=== PATIENT | female | born 1965 | race Caucasian/White ===

== ENCOUNTER → 2016-09-12 | Emergency (ER) | payer MEDICAID ==
[2014-07-06 10:09] VITALS: BMI 24.8
[~2016-09-12] MED LIST: COMBIVENT RESPIM4 GM INH; DEPAKOTE ER500 MG PO; DEPAKOTE500 MG PO; DOXYCYCLINE HY100 M2 PO; HYDROCODONE-APA1 TAB PO; INSPIRATION ELI1 PK1; LOPRESSOR25 MG PO; LUMIGAN 0.03 %2.5 ML EACH EYE; PAXIL PO; PEPCID40 MG PO; PHENERGAN25 M1 PO; PLAVIX75 MG PO; RESTASIS EYE DR30 EA EACH EYE; VALIUM10 MG PO
== END | disposition left against medical advice (07) ==
LOC: D.ER 19:03
DX: R51 Headache (principal)

== ENCOUNTER 2016-09-13 03:45 | Emergency (ER) | payer MEDICAID ==
[2014-07-06 10:09] VITALS: BMI 24.8
== END 2016-09-13 05:00 | disposition home or self-care (01) ==
LOC: D.ER 03:45
DX: R51 Headache (principal); J44.1 Chronic obstructive pulmonary disease with (acute) exacerbation

== ENCOUNTER 2016-12-12 09:46 | Emergency (ER) | payer MEDICAID ==
[2014-07-06 10:09] VITALS: BMI 24.8
[2016-12-12 10:16] LABS: BASOPHILS 0.1 % (0-2); EOSINOPHILS 1.3 % (0-7); HEMATOCRIT 48.2 % (36.0-48.0); HEMOGLOBIN 16.7 g/dL (12-16); IMMATURE GRANULOCYTES 0.3 % (0-5); LYMPHOCYTES 39.6 % (15-50); MCH 30.7 pg (26.0-34.0); MCHC 34.6 g/dL (31.0-37.0); MCV 88.6 fL (80.0-100.0); MEAN PLATELET VOLUME 10.5 fL (7.4-10.4); MONOCYTES 6.8 % (2-11); NEUTROPHILS 51.9 % (40-80); PLATELET COUNT 162 10x3/uL (130-400); RBC 5.44 10x6/uL (4.00-5.40); RDW 13.3 % (11.5-14.5); WBC 7.7 10x3/uL (4.8-10.8)
[2016-12-12 10:37] LABS: ALBUMIN 4.3 g/dL (3.4-5.0); ALKALINE PHOSPHATASE 166 U/L (46-116); ALT (SGPT) 13 U/L (10-68); AMYLASE - SERUM 112 U/L (25-115); CALC OSMOLALITY 276 mosm/kg (275-300); CALCIUM 9.1 mg/dL (8.5-10.1); CARBON DIOXIDE 22.4 mmol/L (21.0-32.0); CHLORIDE - SERUM 104 mmol/L (98-107); CREATININE - SERUM 0.7 mg/dL (0.6-1.3); GLUCOSE 94 mg/dL (74-106); LIPASE 128 U/L (73-393); POTASSIUM - SERUM 3.9 mmol/L (3.5-5.1); PROTEIN - SERUM 7.9 g/dL (6.4-8.2); SODIUM 139 mmol/L (136-145); UREA NITROGEN 10 mg/dL (7-18); eGFR NON AFRICAN AMERICAN > 90 mL/min (90-120)
[2016-12-12 12:32] LABS: APPEARANCE SLT CLOUDY (CLEAR); BILIRUBIN NEGATIVE (NEGATIVE); COLOR YELLOW (YELLOW); GLUCOSE NEGATIVE (NEGATIVE); KETONE NEGATIVE (NEGATIVE); LEUKOCYTE ESTERASE 1+ (NEGATIVE); NITRITE NEGATIVE (NEGATIVE); PROTEIN NEGATIVE (NEGATIVE); UROBILINOGEN NORMAL (NORMAL)
[2016-12-12 12:35] LABS: BACTERIA MANY /hpf (NONE SEEN); MUCUS <1+ /lpf (NONE SEEN); WHITE CELLS - URINE 0-5 /hpf (0-5)
== END 2016-12-12 13:30 | disposition home or self-care (01) ==
LOC: D.ER 09:46
PROVIDERS: Emergency Medicine
DX: R10.9 Unspecified abdominal pain (principal); N39.0 Urinary tract infection, site not specified; J44.9 Chronic obstructive pulmonary disease, unspecified; K27.9 Peptic ulcer, site unspecified, unspecified as acute or chronic, without hemorrhage or perforation; F17.200 Nicotine dependence, unspecified, uncomplicated

== ENCOUNTER 2017-04-18 13:30 | Outpatient (CLI) | payer MEDICAID ==
[2017-04-18 14:37] VITALS: BP 139/92; Ht 170.2 cm
== END 2017-04-18 14:44 ==
LOC: D.OPS 13:30
DX: G43.919 Migraine, unspecified, intractable, without status migrainosus (principal)

== ENCOUNTER 2017-05-26 03:35 | Emergency (ER) | payer MEDICAID ==
[2017-05-26 03:59] LABS: BASOPHILS 0.1 % (0-2); EOSINOPHILS 1.5 % (0-7); HEMOGLOBIN 13.9 g/dL (12-16); IMMATURE GRANULOCYTES 0.1 % (0-5); MCH 31.2 pg (26.0-34.0); MCHC 33.9 g/dL (31.0-37.0); MCV 91.9 fL (80.0-100.0); MEAN PLATELET VOLUME 9.9 fL (7.4-10.4); MONOCYTES 6.5 % (2-11); NEUTROPHILS 40.8 % (40-80); PLATELET COUNT 173 10x3/uL (130-400); RBC 4.46 10x6/uL (4.00-5.40); RDW 12.8 % (11.5-14.5); WBC 7.2 10x3/uL (4.8-10.8)
[2017-05-26 04:14] LABS: ALBUMIN 3.9 g/dL (3.4-5.0); ALKALINE PHOSPHATASE 110 U/L (46-116); ALT (SGPT) 15 U/L (10-68); CALC OSMOLALITY 272 mosm/kg (275-300); CALCIUM 8.1 mg/dL (8.5-10.1); CARBON DIOXIDE 27.8 mmol/L (21.0-32.0); CHLORIDE - SERUM 103 mmol/L (98-107); GLUCOSE 96 mg/dL (74-106); POTASSIUM - SERUM 3.9 mmol/L (3.5-5.1); SODIUM 137 mmol/L (136-145); UREA NITROGEN 10 mg/dL (7-18); eGFR NON AFRICAN AMERICAN 62 mL/min (90-120)
[2017-05-26 04:23] LABS: CHOL - HDL RATIO 6.7 ratio (2.3-4.1); CHOLESTEROL, TOTAL 288 mg/dL (0-200); CKMB 0.1 U/L (0.0-3.6); CREATINE KINASE 23 UL (21-215); HDL CHOLESTEROL 43 mg/dL (32-96); LDL CHOLESTEROL 176 mg/dL (0-100); LDL-HDL RATIO 4.1 ratio (1.5-3.5); TRIGLYCERIDE 348 mg/dL (30-200); TROPONIN-I < 0.017 ng/mL (0.000-0.060)
== END 2017-05-26 05:34 | disposition home or self-care (01) ==
LOC: D.ER 03:35
PROVIDERS: Emergency Medicine
DX: R07.9 Chest pain, unspecified (principal); J44.9 Chronic obstructive pulmonary disease, unspecified

== ENCOUNTER 2018-01-13 06:25 | Emergency (ER) | payer MEDICAID ==
[~2018-01-13] VITALS: Ht 170.2 cm; Wt 72.7 kg
[2018-01-13 06:28] VITALS: Ht 170.2 cm; Wt 72.7 kg
[2018-01-13 06:48] LABS: APPEARANCE CLEAR (CLEAR); BILIRUBIN NEGATIVE (NEGATIVE); COLOR STRAW (YELLOW); GLUCOSE NEGATIVE (NEGATIVE); KETONE NEGATIVE (NEGATIVE); NITRITE NEGATIVE (NEGATIVE); PROTEIN NEGATIVE (NEGATIVE); SPECIFIC GRAVITY 1.005 (1.005-1.020); UROBILINOGEN NORMAL (NORMAL)
[2018-01-13 07:07] LABS: HEMATOCRIT 40.3 % (36.0-48.0); HEMOGLOBIN 13.8 g/dL (12-16); MCH 31.6 pg (26.0-34.0); MCHC 34.2 g/dL (31.0-37.0); MCV 92.2 fL (80.0-100.0); MEAN PLATELET VOLUME 9.7 fL (7.4-10.4); PLATELET COUNT 190 10x3/uL (130-400); RBC 4.37 10x6/uL (4.00-5.40); RDW 13.1 % (11.5-14.5)
[2018-01-13 07:28] LABS: ALBUMIN 3.7 g/dL (3.4-5.0); BILIRUBIN - TOTAL 0.16 mg/dL (0.2-1.3); CARBON DIOXIDE 23.2 mmol/L (21.0-32.0); CREATININE - SERUM 0.9 mg/dL (0.6-1.3); POTASSIUM - SERUM 4.2 mmol/L (3.5-5.1); PROTEIN - SERUM 7.2 g/dL (6.4-8.2)
[2018-01-13 08:03] LABS: EOSINOPHILS 2 % (0-7); LYMPHOCYTES 54 % (15-50); MONOCYTES 12 % (2-11); NEUTROPHILS 31 % (40-80); PLATELET ESTIMATE NORMAL; ROULEAUX OCC
[2018-01-13 09:37] VITALS: BP 173/97
== END 2018-01-13 09:37 | disposition home or self-care (01) ==
LOC: D.ER 06:25
PROVIDERS: Family Medicine
DX: R10.9 Unspecified abdominal pain (principal); Z86.73 Personal history of transient ischemic attack (TIA), and cerebral infarction without residual deficits; G40.909 Epilepsy, unspecified, not intractable, without status epilepticus; J45.909 Unspecified asthma, uncomplicated; G54.0 Brachial plexus disorders; Z86.59 Personal history of other mental and behavioral disorders; Z85.42 Personal history of malignant neoplasm of other parts of uterus; F17.200 Nicotine dependence, unspecified, uncomplicated

== ENCOUNTER → 2018-05-19 14:55 | Outpatient (CLI) | payer MEDICAID ==
[2018-01-13 06:28] VITALS: BMI 25.1
== END | disposition home or self-care (01) ==
LOC: D.MRI 05-12 13:30
DX: M54.12 Radiculopathy, cervical region (principal); S43.491A Other sprain of right shoulder joint, initial encounter; X58.XXXA Exposure to other specified factors, initial encounter

== ENCOUNTER 2018-07-25 00:13 | Emergency (ER) | payer MEDICAID ==
[~2018-07-25] VITALS: Ht 170.2 cm; Wt 72.7 kg
[2018-07-25 00:18] VITALS: Ht 170.2 cm; Wt 72.7 kg
[2018-07-25] MEDS ORDERED: NORVASC5 MG PO (00:51)
[2018-07-25 01:40] VITALS: BP 155/88
== END 2018-07-25 01:40 | disposition home or self-care (01) ==
LOC: D.ER 00:13
DX: G43.909 Migraine, unspecified, not intractable, without status migrainosus (principal); I11.0 Hypertensive heart disease with heart failure; I50.9 Heart failure, unspecified

== ENCOUNTER 2019-01-15 23:36 | Emergency (ER) | payer MEDICAID ==
[~2019-01-15] VITALS: Ht 170.2 cm; Wt 74.8 kg
[~2019-01-15 23:36] MED LIST changes: +NORVASC5 MG PO
[2019-01-15 23:43] VITALS: Ht 170.2 cm; Wt 74.8 kg
[2019-01-15] MEDS ORDERED: TOPROL XL25 MG PO (23:46)
[2019-01-16] MEDS ORDERED: DOXYCYCLINE HY100 M2 PO (00:03)
[2019-01-16 00:09] LABS: APPEARANCE CLEAR (CLEAR); BILIRUBIN NEGATIVE (NEGATIVE); COLOR STRAW (YELLOW); GLUCOSE NEGATIVE (NEGATIVE); KETONE NEGATIVE (NEGATIVE); NITRITE NEGATIVE (NEGATIVE); PROTEIN NEGATIVE (NEGATIVE); SPECIFIC GRAVITY 1.005 (1.005-1.020); UROBILINOGEN NORMAL (NORMAL)
[2019-01-16 00:13] LABS: BASOPHILS 0.5 % (0-2); HEMATOCRIT 43.2 % (36.0-48.0); HEMOGLOBIN 14.6 g/dL (12-16); IMMATURE GRANULOCYTES 0.2 % (0-5); LYMPHOCYTES 43.1 % (15-50); MCH 31.7 pg (26.0-34.0); MCHC 33.8 g/dL (31.0-37.0); MCV 93.9 fL (80.0-100.0); MEAN PLATELET VOLUME 9.8 fL (7.4-10.4); MONOCYTES 6.8 % (2-11); NEUTROPHILS 47.4 % (40-80); PLATELET COUNT 231 10x3/uL (130-400); RDW 13.4 % (11.5-14.5); WBC 5.9 10x3/uL (4.8-10.8)
[2019-01-16 00:24] LABS: UDS - AMPHET NEGATIVE QUAL (NEGATIVE); UDS - BARB NEGATIVE QUAL (NEGATIVE); UDS - BENZO POSITIVE QUAL (NEGATIVE); UDS - COCAINE NEGATIVE QUAL (NEGATIVE); UDS - OPIATE POSITIVE QUAL (NEGATIVE); UDS - PCP NEGATIVE QUAL (NEGATIVE); UDS - THC NEGATIVE QUAL (NEGATIVE)
[2019-01-16 00:31] LABS: ALBUMIN 3.8 g/dL (3.4-5.0); ALKALINE PHOSPHATASE 115 U/L (46-116); ALT (SGPT) 30 U/L (10-68); BILIRUBIN - TOTAL 0.22 mg/dL (0.2-1.3); CALC OSMOLALITY 276 mosm/kg (275-300); CALCIUM 8.3 mg/dL (8.5-10.1); CARBON DIOXIDE 26.4 mmol/L (21.0-32.0); CHLORIDE - SERUM 102 mmol/L (98-107); CREATININE - SERUM 0.8 mg/dL (0.6-1.3); GLUCOSE 117 mg/dL (74-106); POTASSIUM - SERUM 4.1 mmol/L (3.5-5.1); PRO BNP 83 pg/mL (0-125); PROTEIN - SERUM 7.7 g/dL (6.4-8.2); SODIUM 139 mmol/L (136-145); UREA NITROGEN 6 mg/dL (7-18); eGFR NON AFRICAN AMERICAN 79 mL/min (90-120)
[2019-01-16] MEDS ORDERED: PREDNISONE50 MG PO (00:33)
[2019-01-16 00:34] LABS: TROPONIN-I < 0.017 ng/mL (0.000-0.060)
[2019-01-16 00:42] VITALS: BP 155/83
== END 2019-01-16 00:43 | disposition home or self-care (01) ==
LOC: D.ER 23:36
PROVIDERS: Family Medicine
DX: J40 Bronchitis, not specified as acute or chronic (principal); I11.0 Hypertensive heart disease with heart failure; I50.9 Heart failure, unspecified

== ENCOUNTER 2019-05-01 08:37 | Inpatient (IN) | payer MEDICAID ==
[~2019-05-01] VITALS: Ht 170.2 cm; Wt 81.8 kg
[~2019-05-01 08:37] MED LIST changes: +HYDROCODON-ACE1 EA10 PO; -HYDROCODONE-APA1 TAB PO; +PREDNISONE50 MG PO; +TOPROL XL25 MG PO
[2019-05-01 09:32] LABS: BASOPHILS 0.1 % (0-2); EOSINOPHILS 0.7 % (0-7); HEMATOCRIT 42.5 % (36.0-48.0); HEMOGLOBIN 14.3 g/dL (12-16); IMMATURE GRANULOCYTES 0.1 % (0-5); LYMPHOCYTES 20.3 % (15-50); MCH 30.8 pg (26.0-34.0); MCHC 33.6 g/dL (31.0-37.0); MCV 91.6 fL (80.0-100.0); MEAN PLATELET VOLUME 9.6 fL (7.4-10.4); MONOCYTES 5.7 % (2-11); NEUTROPHILS 73.1 % (40-80); PLATELET COUNT 213 10x3/uL (130-400); RBC 4.64 10x6/uL (4.00-5.40); RDW 13.1 % (11.5-14.5); WBC 8.2 10x3/uL (4.8-10.8)
[2019-05-01 09:53] LABS: CALC OSMOLALITY 276 mosm/kg (275-300); CALCIUM 8.5 mg/dL (8.5-10.1); CARBON DIOXIDE 26.1 mmol/L (21.0-32.0); CHLORIDE - SERUM 103 mmol/L (98-107); CREATININE - SERUM 0.8 mg/dL (0.6-1.3); GLUCOSE 115 mg/dL (74-106); POTASSIUM - SERUM 4.1 mmol/L (3.5-5.1); SODIUM 139 mmol/L (136-145); UREA NITROGEN 7 mg/dL (7-18); eGFR NON AFRICAN AMERICAN 79 mL/min (90-120)
[2019-05-01 09:57] LABS: ALBUMIN 3.7 g/dL (3.4-5.0); ALKALINE PHOSPHATASE 109 U/L (46-116); ALT (SGPT) 38 U/L (10-68); BILIRUBIN - TOTAL 0.38 mg/dL (0.2-1.3); PROTEIN - SERUM 7.6 g/dL (6.4-8.2)
--- NOTE | 2019-05-01 10:24 | NUR ---
PT REQUESTING PAIN MEDICATION; EDP PARTH NOTIFIED.
--- NOTE | 2019-05-01 10:50 | NUR ---
RECEIVED PT TO ROOM 2136 VIA W/C FROM ER DX CELLULITIS TO FACE AAOX4 RESP UNLABORED SKIN W/D COLOR WNL EDEMA AND REDNESS NOTED TO FACE NAD NOTED WILL CONTINUE TO MONITOR
[2019-05-01] MEDS ORDERED: PHENERGAN25 M1 PO (11:54)
[2019-05-01 16:00] VITALS: BP 157/78
[2019-05-01 16:16] VITALS: BP 192/88; Ht 170.2 cm; Wt 81.8 kg
--- NOTE | 2019-05-01 19:10 | NUR ---
BEDSIDE REPORT RECEIVED FROM DAY SHIFT, PT CARE ASSUMED. INTRODUCED SELF AND WROTE NAME ON BOARD. PT SITTING UP IN BED, WATCHING TV, AAOX4. DENIES ANY NEEDS AT THIS TIME. BED IN LOWEST POSITION, SR X1, CALL LIGHT WITHIN REACH. WILL CONTINUE TO MONITOR.
[2019-05-01 20:00] VITALS: BP 180/85
[2019-05-02] VITALS: BP 139/81
[2019-05-02 04:00] VITALS: BP 127/68
[2019-05-02 05:42] LABS: BASOPHILS 0.2 % (0-2); HEMATOCRIT 38.4 % (36.0-48.0); HEMOGLOBIN 12.7 g/dL (12-16); IMMATURE GRANULOCYTES 0.4 % (0-5); LYMPHOCYTES 48.3 % (15-50); MCH 30.5 pg (26.0-34.0); MCHC 33.1 g/dL (31.0-37.0); MCV 92.3 fL (80.0-100.0); MEAN PLATELET VOLUME 9.7 fL (7.4-10.4); MONOCYTES 10.4 % (2-11); NEUTROPHILS 38.7 % (40-80); PLATELET COUNT 180 10x3/uL (130-400); RBC 4.16 10x6/uL (4.00-5.40); RDW 13.2 % (11.5-14.5)
[2019-05-02 05:50] LABS: WBC 5.5 10x3/uL (4.8-10.8)
[2019-05-02 06:23] LABS: ALBUMIN 3.3 g/dL (3.4-5.0); ALKALINE PHOSPHATASE 89 U/L (30-120); ALT (SGPT) 35 U/L (10-68); BILIRUBIN - TOTAL 0.23 mg/dL (0.2-1.3); CALC OSMOLALITY 277 mosm/kg (275-300); CALCIUM 8.3 mg/dL (8.5-10.1); CARBON DIOXIDE 25.9 mmol/L (21.0-32.0); CHLORIDE - SERUM 104 mmol/L (98-107); CREATININE - SERUM 0.7 mg/dL (0.6-1.3); GLUCOSE 109 mg/dL (74-106); MAGNESIUM - SERUM 2.1 mg/dL (1.8-2.4); POTASSIUM - SERUM 3.7 mmol/L (3.5-5.1); PROTEIN - SERUM 6.8 g/dL (6.4-8.2); SODIUM 139 mmol/L (136-145); eGFR NON AFRICAN AMERICAN > 90 mL/min (90-120)
[2019-05-02 06:31] LABS: UREA NITROGEN 10 mg/dL (7-18)
[2019-05-02 08:00] VITALS: BP 102/35
--- NOTE | 2019-05-02 08:18 | NUR ---
PT RESTING, EYES CLOSED. RR EVEN AND UNLABORED. PT STATES SHE IS IN PAIN AND REQUESTS DILAUDID. WHEN ASKED IF SHE WANTED SCHEDULED NORCO @ 0845 SHE DENIED. WAS TOLD COULD NOT RECIEVE DILAUDID UNTIL 829, PT VERBALZIED UNDERSTANDING. NO FURTHER NEEDS AT THIS TIME. BED IN LOWEST POSITION. CALL LIGHT WITHIN REACH. WILL CONTINUE TO MONITOR.
[2019-05-02 09:06] VITALS: BP 115/62
[2019-05-02 16:00] VITALS: BP 128/54
--- NOTE | 2019-05-02 19:23 | NUR ---
RECEIVED LAYING IN BED WITH EYES CLOSED. EASILY AROUSES WITH VERBAL STIMULI. ORIENTED X4. IV TO RIGHT HAND SL.. DSG CDI. UP AD HANH TO B/R. DENIES ANY NEEDS AT THIS TIME.
[2019-05-02 20:00] VITALS: BP 119/56
[2019-05-03] VITALS: BP 117/79
[2019-05-03 04:00] VITALS: BP 133/18
[2019-05-03 06:38] LABS: BASOPHILS 0.2 % (0-2); EOSINOPHILS 1.8 % (0-7); HEMATOCRIT 39.5 % (36.0-48.0); HEMOGLOBIN 13.1 g/dL (12-16); IMMATURE GRANULOCYTES 0.2 % (0-5); LYMPHOCYTES 42.9 % (15-50); MCH 30.9 pg (26.0-34.0); MCHC 33.2 g/dL (31.0-37.0); MCV 93.2 fL (80.0-100.0); MEAN PLATELET VOLUME 9.8 fL (7.4-10.4); MONOCYTES 6.8 % (2-11); NEUTROPHILS 48.1 % (40-80); PLATELET COUNT 206 10x3/uL (130-400); RBC 4.24 10x6/uL (4.00-5.40); RDW 13.3 % (11.5-14.5)
[2019-05-03 06:48] LABS: ANION GAP 11.9 mmol/L (8-16); CALCIUM 8.2 mg/dL (8.5-10.1); CARBON DIOXIDE 28.4 mmol/L (21.0-32.0); MAGNESIUM - SERUM 2.1 mg/dL (1.8-2.4)
[2019-05-03 06:49] LABS: CREATININE - SERUM 0.9 mg/dL (0.6-1.3); POTASSIUM - SERUM 4.3 mmol/L (3.5-5.1)
--- NOTE | 2019-05-03 07:30 | NUR ---
A/A/OX4. DENIES ANY NEEDS AT PRESENT TIME AND NO REQUESTS VOICED. ASSESSMENT COMPLETED AND WILL CONTINUE POC. BED IN LOW POSITION AND CALL LIGHT IN REACH. PT GETS UP AD HANH AMBULATORY AND IS STABLE. SL PATENT TO RIGHT HAND. SOME SLIGHT REDNESS STILL VISIBLE TO RIGHT SIDE OF FACE, BUT LOOKING BETTER.
[2019-05-03 08:00] VITALS: BP 120/60
[2019-05-03 12:00] VITALS: BP 90/45
[2019-05-03] MEDS ORDERED: CLEOCIN HCL300 MG PO ×2 (12:44→13:02)
[2019-05-03] MEDS ORDERED: OMNICEF300 MG PO (12:45)
--- NOTE | 2019-05-03 13:42 | MORECARE ---
CASE MANAGEMENT DISCHARGE SUMMARY PATIENT: BECKY RALPH UNIT: [id number] ADM DATE: 05/01/19 AGE: 54 : 65 SEX: F ROOM/BED: D.2137 AUTHOR: MAX BROWN PHYSICIAN: REFERRING PHYSICIAN: KANDY GAR MD DATE OF SERVICE: 05/03/19 Discharge Plan Patient Name: BECKY RALPH Facility: [facility]:[place] : 1965 Planned Disposition: Home Anticipated Discharge Date: 05/03/19 Discharge Date: Expected LOS: 2 Initial Reviewer: [email or web address] Initial Review Date: 05/01/2019 Generated: 05/03/19 2:41 pm Patient Name: BECKY RALPH Page [id number] at 1342 All edits/amendments must be made on the electronic document DICTATION DATE: 05/03/19 1341 MEDICAL MALPRACTICE PARALEGAL: TREY 05/03/19 1341 RPT#: [id number] DC DATE: STATUS: ADM IN [facility] [address] [place] [address] END OF REPORT
--- NOTE | 2019-05-03 13:57 | MORECARE ---
CASE MANAGEMENT DISCHARGE SUMMARY PATIENT: BECKY RALPH UNIT: [id number] ADM DATE: 05/01/19 AGE: 54 : 65 SEX: F ROOM/BED: D.2137 AUTHOR: MAX BROWN PHYSICIAN: REFERRING PHYSICIAN: KANDY GAR MD DATE OF SERVICE: 05/03/19 Discharge Plan Patient Name: BECKY RALPH Facility: [facility]:[place] : 1965 Planned Disposition: Home Anticipated Discharge Date: 05/03/19 Discharge Date: Expected LOS: 2 Initial Reviewer: [email or web address] Initial Review Date: 05/01/2019 Generated: 05/03/19 2:56 pm Last DP export: 05/03/19 12:42 p Patient Name: BECKY RALPH Page [id number] at 1357 All edits/amendments must be made on the electronic document DICTATION DATE: 05/03/19 1356 DIRECTOR SALES TRAINING: TREY 05/03/19 1356 RPT#: [id number] DC DATE: STATUS: ADM IN [facility] [address] [place] [address] END OF REPORT
--- NOTE | 2019-05-03 14:05 | MORECARE ---
CASE MANAGEMENT DISCHARGE SUMMARY PATIENT: BECKY RALPH UNIT: [id number] ADM DATE: 05/01/19 AGE: 54 : 65 SEX: F ROOM/BED: D.3147 AUTHOR: MAX BROWN PHYSICIAN: REFERRING PHYSICIAN: KADNY GAR MD DATE OF SERVICE: 05/03/19 Discharge Plan Patient Name: BECKY RALPH Facility: [facility]:[place] : 1965 Planned Disposition: Home Anticipated Discharge Date: 05/03/19 Discharge Date: Expected LOS: 2 Initial Reviewer: [email or web address] Initial Review Date: 05/01/2019 Generated: 05/03/19 3:05 pm Comments DCP- Discharge Planning Updated by [email or web address]: Kristina Stein on 05/03/19 12:[address] CM MET WITH THE PATIENT AT THE BEDSIDE. FIDENCIO ADVISED SHE HAD DISCHARGE ORDERS. THE PATIENT STATES SHE WAS TOLD SHE WOULD BE DISCHARGED ON SATURDAY. FIDENCIO ADVISED SHE HAD A DISCHARGE ORDER BUT I WOULD LET HER PRIMARY NURSE KNOW THAT SHE HAD QUESTIONS AND WANTED TO SEE THE DOCTOR. SHE WILL HAVE TRANSPORTATION TO HOME. SHE CAN OBTAIN HER PRESCRIPTION AND STATES SHE HAS CLINDAMYCIN AT HOME. DENIES SHE HAS ANY NEEDS. HAD NO QUESTIONS. VOICED NO CONCERNS. FIDENCIO SPOKE WITH KHOI, HER PRIMARY NURSE, REGARDING PATIENT'S REQUEST TO SPEAK WITH THE MD. Last DP export: 05/03/19 12:57 p Patient Name: BECKY RALPH Page [id number] at 1405 All edits/amendments must be made on the electronic document DICTATION DATE: 05/03/19 1404 MANAGER MULTICULTURAL: TREY 05/03/19 1404 RPT#: [id number] DC DATE: STATUS: ADM IN [facility] [address] [place] [address] END OF REPORT
--- NOTE | 2019-05-03 16:02 | NUR ---
DISCHARGE INSTRUCTIONS REVIEWED WITH PT AND VERBALIZES UNDERSTANDING WITH NO QUESTIONS. SL REMOVED FROM RIGHT HAND WITHOUT DIFFICTULTY AND CATH TIP INTACT. LEFT FLOOR AMBULATORY AT HER REQUEST WITH ALL PERSONAL BELONGINGS. LEFT FACILITY VIA PRIVATE VEHICLE WITH FRIEND
--- NOTE | 2019-05-04 09:11 | MORECARE ---
CASE MANAGEMENT DISCHARGE SUMMARY PATIENT: BECKY RALPH UNIT: [id number] ADM DATE: 05/01/19 AGE: 54 : 65 SEX: F ROOM/BED: D.6134 AUTHOR: MAX BROWN PHYSICIAN: REFERRING PHYSICIAN: KANDY GAR MD DATE OF SERVICE: 05/04/19 Discharge Plan Patient Name: BECKY RALPH Facility: [facility]:[place] : 1965 Planned Disposition: Home Anticipated Discharge Date: 05/03/19 Discharge Date: 05/03/2019 Expected LOS: 2 Initial Reviewer: [email or web address] Initial Review Date: 05/01/2019 Generated: 05/04/19 10:10 am Comments DCP- Discharge Planning Updated by [email or web address]: Kristina Stein on 05/03/19 12:[address] CM MET WITH THE PATIENT AT THE BEDSIDE. FIDENCIO ADVISED SHE HAD DISCHARGE ORDERS. THE PATIENT STATES SHE WAS TOLD SHE WOULD BE DISCHARGED ON SATURDAY. FIDENCIO ADVISED SHE HAD A DISCHARGE ORDER BUT I WOULD LET HER PRIMARY NURSE KNOW THAT SHE HAD QUESTIONS AND WANTED TO SEE THE DOCTOR. SHE WILL HAVE TRANSPORTATION TO HOME. SHE CAN OBTAIN HER PRESCRIPTION AND STATES SHE HAS CLINDAMYCIN AT HOME. DENIES SHE HAS ANY NEEDS. HAD NO QUESTIONS. VOICED NO CONCERNS. FIDENCIO SPOKE WITH KHOI, HER PRIMARY NURSE, REGARDING PATIENT'S REQUEST TO SPEAK WITH THE MD. Last DP export: 05/03/19 1:05 p Patient Name: BECKY RALPH Page [phone] at 0911 All edits/amendments must be made on the electronic document DICTATION DATE: 05/04/19909 ERP MANAGER: TREY 05/04/1910 RPT#: [id number] DC DATE:05/03/19 STATUS: DIS IN [facility] [address] [place] [address] END OF REPORT
== END 2019-05-03 16:02 | disposition home or self-care (01) | DRG 603 ==
LOC: D.ER 08:37 → D.M2 09:46
PROVIDERS: Family Medicine; ADMIT Family Medicine; ATTEND Family Medicine
DX: L03.211 Cellulitis of face (principal); K02.9 Dental caries, unspecified; I11.0 Hypertensive heart disease with heart failure; I50.9 Heart failure, unspecified; J44.9 Chronic obstructive pulmonary disease, unspecified

== ENCOUNTER 2019-12-13 12:42 | Inpatient (IN) | payer MEDICAID ==
[~2019-12-13] VITALS: Ht 170.2 cm; Wt 68.2 kg
[~2019-12-13 12:42] MED LIST changes: +CLEOCIN HCL300 MG PO; +OMNICEF300 MG PO
[2019-12-13] MEDS ORDERED: OMNICEF300 MG PO (13:25)
[2019-12-13 14:05] LABS: BASOPHILS 0.2 % (0-2); EOSINOPHILS 1.7 % (0-7); HEMATOCRIT 45.3 % (36.0-48.0); HEMOGLOBIN 15.3 g/dL (12-16); IMMATURE GRANULOCYTES 0.2 % (0-5); LYMPHOCYTES 25.2 % (15-50); MCHC 33.8 g/dL (31.0-37.0); MCV 91.9 fL (80.0-100.0); MEAN PLATELET VOLUME 10.4 fL (7.4-10.4); MONOCYTES 6.1 % (2-11); NEUTROPHILS 66.6 % (40-80); PLATELET COUNT 211 10x3/uL (130-400); RBC 4.93 10x6/uL (4.00-5.40); RDW 12.9 % (11.5-14.5); WBC 8.6 10x3/uL (4.8-10.8)
[2019-12-13 14:14] LABS: CALC OSMOLALITY 278 mosm/kg (275-300); CALCIUM 9.2 mg/dL (8.5-10.1); CARBON DIOXIDE 22.1 mmol/L (21.0-32.0); CHLORIDE - SERUM 106 mmol/L (98-107); CREATININE - SERUM 0.8 mg/dL (0.6-1.3); GLUCOSE 123 mg/dL (74-106); POTASSIUM - SERUM 3.8 mmol/L (3.5-5.1); SODIUM 140 mmol/L (136-145); UREA NITROGEN 9 mg/dL (7-18); eGFR NON AFRICAN AMERICAN 79 mL/min (90-120)
[2019-12-13 14:20] LABS: ALKALINE PHOSPHATASE 118 U/L (30-120); ALT (SGPT) 22 U/L (10-68); BILIRUBIN - TOTAL 0.31 mg/dL (0.2-1.3); PROTEIN - SERUM 7.6 g/dL (6.4-8.2)
[2019-12-13 16:04] LABS: CREATINE KINASE 27 UL (21-215); MAGNESIUM - SERUM 2.2 mg/dL (1.8-2.4)
[2019-12-13 16:07] LABS: TROPONIN-I < 0.017 ng/mL (0.000-0.060)
[2019-12-13 16:15] VITALS: BP 150/89
[2019-12-13 16:35] LABS: APTT 31.9 SECONDS (22.8-39.4); INR 0.99 (0.85-1.17); PROTIME 13.1 SECONDS (11.6-15.0)
--- NOTE | 2019-12-13 17:24 | NUR ---
MERREM COMPLETE AT 1655. HAD TO SLOW RATE DUE TO C/O PAIN WITH INFUSION.
[2019-12-13 17:27] VITALS: BP 150/89; Ht 170.2 cm; Wt 68.2 kg
--- NOTE | 2019-12-13 20:00 | NUR ---
INITIAL ROUNDS AND ASSESSMENT COMPLETED. PT THEN OUT TO WALK THE HALLWAY AND STRETCH HER LEGS. CPOC.
--- NOTE | 2019-12-13 21:04 | NUR ---
PT RETURNED TO ROOM. BEDTIME MEDS GIVEN. DISCUSSED PLAN OF CARE, NEXT ABT DUE. PT SWABBED NASALLY FOR COVID AND SPECIMEN DELIVERED TO LAB
[2019-12-13 21:30] VITALS: BP 144/74
--- NOTE | 2019-12-13 22:59 | NUR ---
RESTING IN BED. NO DISTRESS. CPOC.
[2019-12-14 04:30] VITALS: BP 147/96
--- NOTE | 2019-12-14 05:46 | NUR ---
IV SITED TO LEFT A/C/UPPER ARM IS BECOMING TENDER AND UNCOMFORTABLE TO PATIENT. PT IS A VERY HARD STICK. ATTEMPTS X 5 BY SEVERAL NURSES. WILL PUT IN FOR VASCULAR CONSULT NURSE TO SEE PATIENT TODAY. PT STATES SHE CAN KEEP THE CURRENT IV UNTIL THE CURRENT ABT IS COMPLETE, BUT NEEDS A NEW ONE HUEY.
[2019-12-14 06:28] LABS: ALBUMIN 3.4 g/dL (3.4-5.0); ALKALINE PHOSPHATASE 101 U/L (30-120); ALT (SGPT) 22 U/L (10-68); BILIRUBIN - TOTAL 0.16 mg/dL (0.2-1.3); CALC OSMOLALITY 277 mosm/kg (275-300); CALCIUM 7.9 mg/dL (8.5-10.1); CARBON DIOXIDE 24.7 mmol/L (21.0-32.0); CHLORIDE - SERUM 107 mmol/L (98-107); CREATININE - SERUM 0.7 mg/dL (0.6-1.3); GLUCOSE 94 mg/dL (74-106); POTASSIUM - SERUM 3.7 mmol/L (3.5-5.1); PROTEIN - SERUM 6.3 g/dL (6.4-8.2); SODIUM 140 mmol/L (136-145); UREA NITROGEN 9 mg/dL (7-18); eGFR NON AFRICAN AMERICAN > 90 mL/min (90-120)
[2019-12-14 06:44] LABS: BASOPHILS 0.5 % (0-2); EOSINOPHILS 2.1 % (0-7); HEMATOCRIT 36.4 % (36.0-48.0); HEMOGLOBIN 12.3 g/dL (12-16); IMMATURE GRANULOCYTES 0.2 % (0-5); LYMPHOCYTES 40.6 % (15-50); MCH 30.7 pg (26.0-34.0); MCHC 33.8 g/dL (31.0-37.0); MCV 90.8 fL (80.0-100.0); MEAN PLATELET VOLUME 10.6 fL (7.4-10.4); MONOCYTES 9.4 % (2-11); NEUTROPHILS 47.2 % (40-80); PLATELET COUNT 196 10x3/uL (130-400); RBC 4.01 10x6/uL (4.00-5.40); RDW 12.9 % (11.5-14.5); WBC 6.6 10x3/uL (4.8-10.8)
--- NOTE | 2019-12-14 08:05 | NUR ---
PT SITTING UP IN BED, RR EVEN AND UNLABORED. DENIES NEEDS OR PAIN AT THIS TIME. VASCULAR ACCESS NURSE AT BEDSIDE. CALL LIGHT WITHIN REACH. BED IN LOWEST POSITION. WILL CONTINUE TO MONITOR.
[2019-12-14 09:46] VITALS: BP 132/83
[2019-12-14 13:05] VITALS: BP 148/80
[2019-12-14 13:59] VITALS: BP 148/80
[2019-12-14 15:51] LABS: BILIRUBIN NEGATIVE (NEGATIVE); KETONE NEGATIVE (NEGATIVE); NITRITE NEGATIVE (NEGATIVE); UROBILINOGEN NORMAL (NORMAL)
[2019-12-14 16:08] VITALS: BP 146/60
--- NOTE | 2019-12-14 19:30 | NUR ---
REPORT RECIEVED AND ROUNDING COMPLETE. PATIENT SIITING IN HER BED TALKING ON HER CELL PHONE. NO DISTRESS NOTED, RIGHT UPPER ARM PIV RUNNIGN ABX AT THIS TIME, PATENT. PATIENT STATES NO NEEDS AT THIS TIME. CALL LIGHT WITHIN REACH AND BED IN LOWEST LOCKED POSITION.
--- NOTE | 2019-12-14 19:43 | NUR ---
ARELI GRIDLEY SUPERVISIOR CAUGHT PATIENT GOING OUTSIDE, INFORMED PATIENT THAT SHE IS NOT ALLOWED TO GO OUT PER HOSPITAL POLICY. PATIENT THEN ARGUED THAT HER DOCTORS ALL TOLD HER IS ALLOWED TO GO OUT BECAUSE SHE USED TO WORK HERE AND HAS AN ALLERGY TO THE ADHESIVE ON THE NICOTINE PATCHES. PATIENT THEN STATES THAT SHE WILL LEAVE AMA. GOT THE PAPERWORK TOGETHER FOR THE PATIENT AND WHEN I WENT INTO THE ROOM SHE STATED SHE WILL STAY INSIDE AND WILL TALK TO HER DOCTOR IN THE MORNING.
[2019-12-14 21:29] VITALS: BP 126/66
[2019-12-15 04:00] VITALS: BP 100/50
[2019-12-15 06:19] LABS: HEMATOCRIT 34.5 % (36.0-48.0); HEMOGLOBIN 11.2 g/dL (12-16); MCH 29.9 pg (26.0-34.0); MCHC 32.5 g/dL (31.0-37.0); MCV 92.2 fL (80.0-100.0); MEAN PLATELET VOLUME 10.2 fL (7.4-10.4); RBC 3.74 10x6/uL (4.00-5.40)
[2019-12-15 06:21] LABS: PLATELET COUNT 155 10x3/uL (130-400); WBC 4.3 10x3/uL (4.8-10.8)
[2019-12-15 07:16] LABS: ANION GAP 9.7 mmol/L (8-16); CALCIUM 7.7 mg/dL (8.5-10.1); CARBON DIOXIDE 27.1 mmol/L (21.0-32.0); POTASSIUM - SERUM 3.8 mmol/L (3.5-5.1)
[2019-12-15 07:18] LABS: CREATININE - SERUM 0.9 mg/dL (0.6-1.3)
[2019-12-15 07:50] VITALS: BP 118/46
[2019-12-15] MEDS ORDERED: ADOXA100 MG PO (09:47)
--- NOTE | 2019-12-15 11:13 | NUR ---
IV DCD. DC PLANS GIVEN. UNDERSTANDING VOICED. ESCORTED TO CAR BY W/C.
[2019-12-15 13:04] LABS: EOSINOPHILS 2 % (0-7); LYMPHOCYTES 47 % (15-50); MONOCYTES 12 % (2-11); NEUTROPHILS 38 % (40-80); PLATELET ESTIMATE NORMAL; ROULEAUX OCC
--- NOTE | 2019-12-16 08:06 | MORECARE ---
CASE MANAGEMENT DISCHARGE SUMMARY PATIENT: BECKY RALPH UNIT: [id number] ADM DATE: 12/13/19 AGE: 54 : 65 SEX: F ROOM/BED: D.[facility] AUTHOR: MAX BROWN PHYSICIAN: REFERRING PHYSICIAN: MAME SIMMONS MD DATE OF SERVICE: 12/16/19 Discharge Plan Patient Name: BECKY RALPH Facility: [facility]:[place] : 1965 Planned Disposition: Anticipated Discharge Date: Discharge Date: 12/15/2019 Expected LOS: 0 Initial Reviewer: [email or web address] Initial Review Date: 12/13/2019 Generated: 12/16/19 9:05 am Patient Name: BECKY RALPH Page [id number] at 0806 All edits/amendments must be made on the electronic document DICTATION DATE: 12/16/19804 TIP FINISHER: TREY 12/16/19804 RPT#: [id number] DC DATE:12/15/19 STATUS: DIS IN [facility] [address] [facility] [place] [address] END OF REPORT
== END 2019-12-15 11:13 | disposition home or self-care (01) | DRG 603 ==
LOC: D.ER 12:42 → D.M2 16:14 → D.EDHOLD 16:14 → D.M2 16:55
PROVIDERS: Family Medicine; ADMIT Emergency Medicine; ATTEND Emergency Medicine
DX: L03.211 Cellulitis of face (principal); F17.203 Nicotine dependence unspecified, with withdrawal; I11.0 Hypertensive heart disease with heart failure; I50.9 Heart failure, unspecified; J44.9 Chronic obstructive pulmonary disease, unspecified; K21.9 Gastro-esophageal reflux disease without esophagitis; I25.2 Old myocardial infarction

== ENCOUNTER 2020-01-12 16:01 | Emergency (ER) | payer MEDICAID ==
[~2020-01-12] VITALS: Ht 170.2 cm; Wt 68.2 kg
[~2020-01-12 16:01] MED LIST changes: +ADOXA100 MG PO
[2020-01-12 16:16] VITALS: Ht 170.2 cm; Wt 68.2 kg
[2020-01-12] MEDS ORDERED: CLEOCIN HCL300 MG PO (18:02)
[2020-01-12 18:32] VITALS: BP 194/88
[2020-01-12 18:44] LABS: BASOPHILS 0.2 % (0-2); EOSINOPHILS 0.7 % (0-7); HEMATOCRIT 41.4 % (36.0-48.0); HEMOGLOBIN 14.1 g/dL (12-16); IMMATURE GRANULOCYTES 0.1 % (0-5); LYMPHOCYTES 20.6 % (15-50); MCH 30.9 pg (26.0-34.0); MCHC 34.1 g/dL (31.0-37.0); MCV 90.8 fL (80.0-100.0); MEAN PLATELET VOLUME 10.4 fL (7.4-10.4); MONOCYTES 4.5 % (2-11); NEUTROPHILS 73.9 % (40-80); PLATELET COUNT 185 10x3/uL (130-400); RBC 4.56 10x6/uL (4.00-5.40); RDW 13.2 % (11.5-14.5); WBC 8.5 10x3/uL (4.8-10.8)
[2020-01-12 19:15] LABS: CALC OSMOLALITY 275 mosm/kg (275-300); CARBON DIOXIDE 22.3 mmol/L (21.0-32.0); CHLORIDE - SERUM 107 mmol/L (98-107); CREATININE - SERUM 0.6 mg/dL (0.6-1.3); GLUCOSE 100 mg/dL (74-106); POTASSIUM - SERUM 3.8 mmol/L (3.5-5.1); SODIUM 139 mmol/L (136-145); UREA NITROGEN 6 mg/dL (7-18); eGFR NON AFRICAN AMERICAN > 90 mL/min (90-120)
[2020-01-12 19:21] LABS: ALBUMIN 3.7 g/dL (3.4-5.0); ALKALINE PHOSPHATASE 111 U/L (30-120); ALT (SGPT) 18 U/L (10-68); BILIRUBIN - TOTAL 0.27 mg/dL (0.2-1.3); C-REACTIVE PROTEIN 0.9 mg/dL (0.0-0.9); PROTEIN - SERUM 7.3 g/dL (6.4-8.2)
== END 2020-01-12 20:20 | disposition home or self-care (01) ==
LOC: D.ER 16:01
PROVIDERS: Emergency Medicine
DX: L03.211 Cellulitis of face (principal); K21.9 Gastro-esophageal reflux disease without esophagitis; I11.0 Hypertensive heart disease with heart failure; I50.9 Heart failure, unspecified; I25.2 Old myocardial infarction; J44.9 Chronic obstructive pulmonary disease, unspecified; Z72.0 Tobacco use

== ENCOUNTER 2020-08-09 21:20 | Emergency (ER) | payer MEDICAID ==
[~2020-08-09] VITALS: Ht 170.2 cm; Wt 63.6 kg
[~2020-08-09 21:20] MED LIST changes: +FISH OIL; +MEDROL DOSE PACK4 MG PO; +METOPROLOL TART25 MG PO; +NORCO 7.5-3251 EACH GT; +ZITHROMAX500 MG PO; +ZPAK PO
[2020-08-09 21:23] VITALS: Ht 170.2 cm; Wt 63.6 kg
[2020-08-09 22:09] LABS: BASOPHILS 0.3 % (0-2); EOSINOPHILS 1.6 % (0-7); HEMATOCRIT 42.8 % (36.0-48.0); HEMOGLOBIN 14.2 g/dL (12-16); IMMATURE GRANULOCYTES 0.2 % (0-5); LYMPHOCYTES 33.2 % (15-50); MCH 30.2 pg (26.0-34.0); MCHC 33.2 g/dL (31.0-37.0); MCV 91.1 fL (80.0-100.0); MEAN PLATELET VOLUME 10.6 fL (7.4-10.4); MONOCYTES 5.7 % (2-11); NEUTROPHIL ABS# 3.73 10x3/uL (1.56-6.13); RDW 12.8 % (11.5-14.5); WBC 6.3 10x3/uL (4.8-10.8)
[2020-08-09 22:13] LABS: PLATELET COUNT 234 10x3/uL (130-400)
[2020-08-09 22:14] LABS: APTT 33.3 SECONDS (22.8-39.4); INR 1.06 (0.85-1.17); PROTIME 12.8 SECONDS (11.6-15.0)
[2020-08-09 22:15] LABS: CALC OSMOLALITY 280 mosm/kg (275-300); CALCIUM 9.1 mg/dL (8.5-10.1); CARBON DIOXIDE 25.9 mmol/L (21.0-32.0); CHLORIDE - SERUM 103 mmol/L (98-107); CREATININE - SERUM 0.9 mg/dL (0.6-1.3); D-DIMER-QUANTITATIVE < 0.27 ug/mLFEU (0.20-0.54); GLUCOSE 113 mg/dL (74-106); POTASSIUM - SERUM 4.3 mmol/L (3.5-5.1); SODIUM 140 mmol/L (136-145); UREA NITROGEN 14 mg/dL (7-18); eGFR NON AFRICAN AMERICAN 69 mL/min (90-120)
[2020-08-09 22:32] LABS: ALKALINE PHOSPHATASE 93 U/L (30-120); ALT (SGPT) 19 U/L (10-68); BILIRUBIN - TOTAL 0.16 mg/dL (0.2-1.3); CKMB 0.3 U/L (0.0-3.6); CREATINE KINASE 26 UL (21-215); MAGNESIUM - SERUM 2.2 mg/dL (1.8-2.4); PROTEIN - SERUM 7.7 g/dL (6.4-8.2); TROPONIN-I < 0.017 ng/mL (0.000-0.060)
[2020-08-10 01:58] VITALS: BP 179/97
== END 2020-08-10 01:58 | disposition home or self-care (01) ==
LOC: D.ER 21:20
PROVIDERS: Family Medicine
DX: R07.9 Chest pain, unspecified (principal); Z86.73 Personal history of transient ischemic attack (TIA), and cerebral infarction without residual deficits; I50.9 Heart failure, unspecified; J44.9 Chronic obstructive pulmonary disease, unspecified; Z72.0 Tobacco use

== ENCOUNTER 2020-09-17 15:19 | Observation (INO) | payer MEDICAID ==
[~2020-09-17] VITALS: Ht 170.2 cm; Wt 63.6 kg
[~2020-09-17 15:19] MED LIST changes: -FISH OIL; +FISH OIL PO; -INSPIRATION ELI1 PK1; +[UNRECOGNIZED DRUG - OTHER]
[2020-09-17 16:32] LABS: BASOPHILS 0.1 % (0-2); EOSINOPHILS 0.7 % (0-7); HEMATOCRIT 44.3 % (36.0-48.0); HEMOGLOBIN 15.2 g/dL (12-16); IMMATURE GRANULOCYTES 0.1 % (0-5); LYMPHOCYTES 21.3 % (15-50); MCH 29.9 pg (26.0-34.0); MCHC 34.3 g/dL (31.0-37.0); MCV 87.2 fL (80.0-100.0); MEAN PLATELET VOLUME 10.3 fL (7.4-10.4); MONOCYTES 6.1 % (2-11); NEUTROPHIL ABS# 5.39 10x3/uL (1.56-6.13); NEUTROPHILS 71.7 % (40-80); PLATELET COUNT 223 10x3/uL (130-400); RBC 5.08 10x6/uL (4.00-5.40); RDW 12.6 % (11.5-14.5); WBC 7.5 10x3/uL (4.8-10.8)
[2020-09-17 16:42] LABS: APTT 31.7 SECONDS (22.8-39.4); INR 1.05 (0.85-1.17); PROTIME 12.7 SECONDS (11.6-15.0)
[2020-09-17 16:48] LABS: CALC OSMOLALITY 278 mosm/kg (275-300); CALCIUM 9.2 mg/dL (8.5-10.1); CARBON DIOXIDE 19.9 mmol/L (21.0-32.0); CHLORIDE - SERUM 102 mmol/L (98-107); CREATININE - SERUM 0.9 mg/dL (0.6-1.3); GLUCOSE 116 mg/dL (74-106); POTASSIUM - SERUM 4.2 mmol/L (3.5-5.1); SODIUM 139 mmol/L (136-145); UREA NITROGEN 13 mg/dL (7-18); eGFR NON AFRICAN AMERICAN 69 mL/min (90-120)
[2020-09-17 17:05] LABS: ALBUMIN 5.2 g/dL (3.4-5.0); ALKALINE PHOSPHATASE 111 U/L (30-120); ALT (SGPT) 14 U/L (10-68); BILIRUBIN - TOTAL 0.49 mg/dL (0.2-1.3); CKMB 0.3 U/L (0.0-3.6); CREATINE KINASE 28 UL (21-215); PROTEIN - SERUM 7.8 g/dL (6.4-8.2)
[2020-09-17 17:07] LABS: TROPONIN-I < 0.017 ng/mL (0.000-0.060)
[2020-09-17 17:58] LABS: AMYLASE - SERUM 71 U/L (25-115); LIPASE 51 U/L (73-393)
--- NOTE | 2020-09-17 18:30 | NUR ---
IV ATTEMPTS X 10 BY MULTIPLE RN'S.
--- NOTE | 2020-09-17 21:50 | NUR ---
PIV TO LEFT THUMB INFILTRATED; BLEEDING AT SITE WITH SMALL AMOUNT OF EDEMA. IV REMOVED WITH CATHETER INTACT.
--- NOTE | 2020-09-17 22:02 | NUR ---
PT IV OUT AFTER MULTIPLE ATTEMPTS. SPOKE WITH TL ANTHONY REGARDING IV. STATES TO LEAVE OUT FOR NOW AND HAVE PATIENT DRINK FLUIDS. PT DRINKING SPRITE AT THIS TIME WIHOUT DIFFICULTY.
[2020-09-17 23:20] LABS: CKMB 0.3 U/L (0.0-3.6); CREATINE KINASE 32 UL (21-215); TROPONIN-I < 0.017 ng/mL (0.000-0.060)
[2020-09-18 01:39] LABS: BILIRUBIN NEGATIVE (NEGATIVE); KETONE NEGATIVE mg/dL (< 1+); NITRITE NEGATIVE (NEGATIVE); PH 6.5 (5.0-8.0); SQUAMOUS EPITHELIAL <1 HPF (0-4); UROBILINOGEN NORMAL mg/dL (< 2); WHITE CELLS - URINE 1 HPF (0-4)
[2020-09-18 01:46] LABS: UDS - AMPHET NEGATIVE QUAL (NEGATIVE); UDS - BARB NEGATIVE QUAL (NEGATIVE); UDS - BENZO POSITIVE QUAL (NEGATIVE); UDS - COCAINE NEGATIVE QUAL (NEGATIVE); UDS - OPIATE POSITIVE QUAL (NEGATIVE); UDS - PCP NEGATIVE QUAL (NEGATIVE); UDS - THC NEGATIVE QUAL (NEGATIVE)
[2020-09-18 02:50] LABS: CKMB 0.3 U/L (0.0-3.6); CREATINE KINASE 38 UL (21-215)
[2020-09-18 02:52] LABS: TROPONIN-I < 0.017 ng/mL (0.000-0.060)
--- NOTE | 2020-09-18 04:49 | NUR ---
ADMIT TO ROOM 2124 FROM ER. ALERT/ORIENTED/AMBULATORY. ADMISSION HISTORY AND ASSESSMENT COMPLETED. PT HAS NO IV ACCESS AND ADMISSION METAL FURNITURE ASSEMBLER/TL PEDRO IS AWARE. TELEMETRY STARTED. PLAN OF CARE REVIEWED. INSTRUCTED ON NPO UNTIL SEEN BY MUSICAL INSTRUMENT MAKER.
[2020-09-18 04:50] VITALS: BP 120/59
[2020-09-18 06:14] VITALS: BP 120/59; Ht 170.2 cm; Wt 63.6 kg
--- NOTE | 2020-09-18 06:30 | NUR ---
RECEIVED BEDSIDE REPORT. RESP EVEN AND UNLABORED. ROOM AIR SATS AT [address]
[2020-09-18 07:27] LABS: BASOPHILS 0.1 % (0-2); EOSINOPHILS 1.8 % (0-7); HEMATOCRIT 40.1 % (36.0-48.0); HEMOGLOBIN 13.6 g/dL (12-16); IMMATURE GRANULOCYTES 0.1 % (0-5); LYMPHOCYTE ABS# 2.58 10x3/uL (1.18-3.74); LYMPHOCYTES 38.7 % (15-50); MCH 29.8 pg (26.0-34.0); MCHC 33.9 g/dL (31.0-37.0); MCV 87.7 fL (80.0-100.0); MEAN PLATELET VOLUME 10.3 fL (7.4-10.4); MONOCYTES 9.1 % (2-11); NEUTROPHIL ABS# 3.34 10x3/uL (1.56-6.13); NEUTROPHILS 50.2 % (40-80); PLATELET COUNT 205 10x3/uL (130-400); RBC 4.57 10x6/uL (4.00-5.40); RDW 12.8 % (11.5-14.5); WBC 6.7 10x3/uL (4.8-10.8)
--- NOTE | 2020-09-18 07:59 | NUR ---
PATIENT AWAKE AND ALERT. NO CURRENT PAIN OR DISTRESS. PATIENT COMPLAINS OF HEADACHE. NO IV IN PLACE. RESP EVEN AND UNLABORED. SATS 99. LUNG SOUNDS CLEAR. HEART REGULAR RATE AND RYTHYM. PATIENT EXPECTS TO GO HOME TODAY.
[2020-09-18 08:01] LABS: BILIRUBIN - TOTAL 0.37 mg/dL (0.2-1.3); CALCIUM 8.9 mg/dL (8.5-10.1); MAGNESIUM - SERUM 2.2 mg/dL (1.8-2.4); PHOSPHOROUS 3.2 mg/dL (2.5-4.9); POTASSIUM - SERUM 3.6 mmol/L (3.5-5.1); PROTEIN - SERUM 7.7 g/dL (6.4-8.2)
[2020-09-18 08:05] LABS: ALBUMIN 3.7 g/dL (3.4-5.0); ANION GAP 11.6 mmol/L (8-16)
[2020-09-18 08:09] LABS: CKMB 0.6 U/L (0.0-3.6); CREATINE KINASE 48 UL (21-215)
[2020-09-18 08:18] LABS: TROPONIN-I < 0.017 ng/mL (0.000-0.060)
[2020-09-18 08:23] VITALS: BP 124/58
[2020-09-18] MEDS ORDERED: GEMFIBROZIL600 MG PO (11:02)
[2020-09-18] MEDS ORDERED: CLONIDINE HCL0.1 MG PO (11:03)
--- NOTE | 2020-09-18 11:49 | NUR ---
I have reviewed this patient and I concur with the Shift Assessment completed by the Licensed Practical Nurse today this shift.
== END 2020-09-18 12:11 | disposition home or self-care (01) ==
LOC: D.ER 15:19 → OBSVTIME 18:14 → D.EDHOLD 18:14 → D.M2 09-18 02:02
PROVIDERS: Family Medicine; ADMIT Emergency Medicine; ATTEND Emergency Medicine
DX: R55 Syncope and collapse (principal); K52.9 Noninfective gastroenteritis and colitis, unspecified; R11.2 Nausea with vomiting, unspecified; Z86.73 Personal history of transient ischemic attack (TIA), and cerebral infarction without residual deficits; J44.9 Chronic obstructive pulmonary disease, unspecified; I50.9 Heart failure, unspecified; K21.9 Gastro-esophageal reflux disease without esophagitis; E78.5 Hyperlipidemia, unspecified; I11.0 Hypertensive heart disease with heart failure; K02.9 Dental caries, unspecified; F41.8 Other specified anxiety disorders; F20.9 Schizophrenia, unspecified; F17.203 Nicotine dependence unspecified, with withdrawal; G89.29 Other chronic pain; M79.7 Fibromyalgia